=== PATIENT | female | born 1965 | race Hispanic/Latino ===

== ENCOUNTER 2018-04-16 14:15 | Emergency (ER) | payer OTHER ==
[2018-04-16 14:15] VITALS: BMI 23.1
[2018-04-16 14:23] VITALS: RESP 18
[2018-04-16] MEDS ORDERED: Sodium Chloride 0.45% 1,000 ML IV SCH (15:00)
[2018-04-16 15:09] LABS: BASO # 0.1 K/uL (0.0-0.2); BASO % 0.9 % (0.0-2.0); EOS # 0.1 K/uL (0.0-0.7); EOS % 1.9 % (0.0-4.0); HEMOGLOBIN 13.8 g/dL (12.0-16.0); LYMPH # 2.5 K/uL (1.0-4.3); LYMPH % 36.2 % (20.0-40.0); MEAN CELL VOLUME 88.9 fl (81.0-99.0); MEAN CORPUSCULAR HEMOGLOBIN 29.8 pg (27.0-31.0); MEAN CORPUSCULAR HGB CONC 33.5 g/dL (33.0-37.0); MONO # 0.4 K/uL (0.0-0.8); MONO % 5.9 % (0.0-10.0); NEUT # 3.8 K/uL (1.8-7.0); NEUT % 55.1 % (50.0-75.0); NRBC % 0.1 % (0.0-0.0); RBC 4.63 Mil/uL (3.80-5.20); RED CELL DISTRIBUTION WIDTH 13.5 % (11.5-14.5); WHITE BLOOD COUNT 6.9 K/uL (4.8-10.8)
[2018-04-16 15:17] LABS: CALCIUM 9.8 mg/dL (8.4-10.2); GFR AFRICAN-AMERICAN > 60; GFR NON-AFRICAN AMERICAN > 60
[2018-04-16 15:20] LABS: BLOOD UREA NITROGEN 17 mg/dl (7-17)
--- NOTE | 2018-04-16 16:55 | ED PDOC ---
HPI: Hypertension/Hypotension Time Seen by Provider: 04/16/18 14:21 Chief Complaint (Nursing): High Blood Pressure Chief Complaint (Provider): headache, elevated BP History Per: Patient History/Exam Limitations: no limitations Onset/Duration Of Symptoms: Gradual Current Symptoms Are (Timing): Intermittent Episodes Associated Symptoms: denies: Chest Pain, Dyspnea Exacerbating Factor(s): Pos: Recent Change In Medication Past Medical History Vital Signs: Last Vital Signs Temp 97.1 F L 04/16/18 14:29 Pulse 85 04/16/18 15:00 Resp 18 04/16/18 14:21 BP 165/109 H 04/16/18 15:00 Pulse Ox - Medical History PMH: Hypothyroidism Denies: Chronic Kidney Disease - Family History Family History: States: Unknown Family Hx - Home Medications Home Medications: Ambulatory Orders Medication Instructions Recorded Zolpidem Tartrate [Ambien] 5 mg PO HS PRN 09/13/14 Dicyclomine [Dicyclomine HCl] 10 mg PO TID PRN #10 cap 01/14/17 Ondansetron [Zofran] 4 mg PO Q6H PRN #10 tab 01/14/17 - Allergies Allergies/Adverse Reactions: Allergies Allergy/AdvReac Type Severity Reaction Status Date / Time levofloxacin [From Levaquin] Allergy RASH Verified 01/14/17 12:48 moxifloxacin HCl Allergy RASH Verified 01/14/17 12:48 [From Avelox] - Laboratory Results Result Diagrams: 04/16/18 15:00 04/16/18 15:00 Disposition - Clinical Impression Clinical Impression: Headache, Elevated blood pressure reading - Disposition Referrals: Paul Wagner MD [Family Provider] - Condition: STABLE Additional Instructions: Avoid salt in your diet. Drink plenty of fluids. Take blood pressure medication as prescribed by your doctor. Return to ER for any new or worsening symptoms. Instructions: High Blood Pressure (DC), Headache, Adult (DC), Hypotension (ED) , Hypertension (ED) Forms: [employer] ([place])
[2018-04-16 18:29] VITALS: BP 132/76; PULSE 68; TEMP 97.8; O2SAT 100
--- NOTE | 2018-04-17 11:04 | CARD ---
APPROVED REPORT EKG Measurement Heart [id number] <Conclusion> Normal sinus rhythm Minimal voltage criteria for LVH, may be normal variant ST & T wave abnormality, consider anterolateral ischemia Abnormal ECG
== END 2018-04-16 17:00 | disposition home or self-care (01) ==
LOC: H.ER 14:15
DX: R51 Headache (principal); I10 Essential (primary) hypertension; E03.9 Hypothyroidism, unspecified
CPT/HCPCS: 80048; 84443; 84484; 85025; 93005; 96374; 99284; J1885; J7030